=== PATIENT | female | born 1980 | race Two or more races ===

== ENCOUNTER 2020-03-05 00:14 | Emergency (ER) | payer MEDICAID, OTHER ==
[~2020-03-05] VITALS: Ht 157.5 cm; Wt 82.5 kg
[2020-03-05] MEDS ORDERED: SODIUM CHLORIDE FLUSH 10ML SYR IVF ONE (00:30)
[2020-03-05] MEDS ORDERED: MORPHINE SULFATE 4 MG/ML, 1ML IVPush PRN (00:30)
[2020-03-05] MEDS ORDERED: ONDANSETRON 2MG/ML, 2ML IVPush ONE (00:30)
--- NOTE | 2020-03-05 00:36 | NUR ---
Patient presents to ER c/o epigastric pain which started around 0000. Patient was nauseous earlier but denies vomiting. Denies diarrhea or urinary symptoms. Patient is in obvious pain. Respirations even and unlabored.
[2020-03-05] MEDS ORDERED: ONDANSETRON 2MG/ML, 2ML ONE (00:38)
[2020-03-05] MEDS ORDERED: MORPHINE SULFATE 4 MG/ML, 1ML ONE (00:38)
[2020-03-05 00:49] LABS: BASOPHILS # (AUTO) 0.05 x10^3/uL (0-0.1); BASOPHILS % (AUTO) 1 % (0-1); EOSINOPHILS # (AUTO) 0.15 x10^3/uL (0-0.4); EOSINOPHILS % (AUTO) 2 % (1-7); LYMPHOCYTES # (AUTO) 2.99 x10^3/uL (1-3.4); LYMPHOCYTES % (AUTO) 47 % (22-44); MD NO; MEAN CORPUSCULAR HEMOGLOBIN 28.7 pg (27.0-34.8); MEAN CORPUSCULAR HGB CONC 32.8 g/dL (32.4-35.8); MEAN PLATELET VOLUME 7.9 fL (7.4-10.4); MONOCYTES # (AUTO) 0.69 x10^3/uL (0.2-0.8); MONOCYTES % (AUTO) 11 % (2-9); NEUTROPHILS # (AUTO) 2.54 x10^3/uL (1.8-6.8); NEUTROPHILS % (AUTO) 40 % (42-75); PLATELET COUNT 330 x10^3/uL (130-400); RED BLOOD COUNT 4.95 x10^6/uL (3.82-5.3)
[2020-03-05 01:00] LABS: ALANINE AMINOTRANSFERASE 58 U/L (12-78); ALBUMIN 3.4 g/dL (3.4-5.0); ANION GAP 7 mmol/L (5-15); CALCIUM 9.2 mg/dL (8.5-10.1); CHLORIDE 110 mmol/L (98-107); CREATININE 0.81 mg/dL (0.55-1.02)
[2020-03-05 01:07] LABS: ALKALINE PHOSPHATASE 100 U/L (45-117); BILIRUBIN,TOTAL 0.5 mg/dL (0.2-1.0); TOTAL PROTEIN 8.1 g/dL (6.4-8.2)
[2020-03-05 02:09] VITALS: BP 125/69
== END 2020-03-05 02:18 ==
LOC: EDBD → ED 02:17
DX: K80.50 Calculus of bile duct without cholangitis or cholecystitis without obstruction (principal); R10.30 Lower abdominal pain, unspecified; R11.0 Nausea
CPT/HCPCS: 36415; 76700; 80053; 83690; 84703; 85025; 96374; 96375; 99284; J2270; J2405

== ENCOUNTER 2020-03-07 07:45 | Inpatient (IN) | payer SELFPAY ==
[~2020-03-07] VITALS: Ht 157.5 cm; Wt 85.6 kg
[2020-03-07] MEDS ORDERED: ONDANSETRON 2MG/ML, 2ML ONE (08:16)
[2020-03-07] MEDS ORDERED: HYDROmorphone 1 MG/ML, 1ML INJ ONE (08:16)
[2020-03-07] MEDS ORDERED: SODIUM CHLORIDE 0.9% 1,000ML IVBOLUS ONE (08:30)
[2020-03-07] MEDS ORDERED: ONDANSETRON 2MG/ML, 2ML IVPush ONE (08:30)
[2020-03-07] MEDS ORDERED: HYDROmorphone 2 MG/ML, 1ML IVPush PRN (08:30)
[2020-03-07 08:41] LABS: BASOPHILS # (AUTO) 0.17 x10^3/uL (0-0.1); BASOPHILS % (AUTO) 3 % (0-1); EOSINOPHILS # (AUTO) 0.12 x10^3/uL (0-0.4); EOSINOPHILS % (AUTO) 2 % (1-7); LYMPHOCYTES % (AUTO) 38 % (22-44); MD NO; MEAN CORPUSCULAR HEMOGLOBIN 28.5 pg (27.0-34.8); MEAN CORPUSCULAR HGB CONC 32.4 g/dL (32.4-35.8); MEAN PLATELET VOLUME 8.1 fL (7.4-10.4); MONOCYTES % (AUTO) 9 % (2-9); NEUTROPHILS # (AUTO) 2.85 x10^3/uL (1.8-6.8); NEUTROPHILS % (AUTO) 49 % (42-75); PLATELET COUNT 350 x10^3/uL (130-400); RED BLOOD COUNT 4.63 x10^6/uL (3.82-5.3); RED CELL DISTRIBUTION WIDTH 13.2 % (9.6-15.2)
--- NOTE | 2020-03-07 08:41 | NUR ---
MEDICATED FOR PAIN. IV ESTABLISHED.
[2020-03-07 08:47] LABS: ALANINE AMINOTRANSFERASE 194 U/L (12-78); ALBUMIN 2.9 g/dL (3.4-5.0); ANION GAP 6 mmol/L (5-15); CALCIUM 8.4 mg/dL (8.5-10.1); CHLORIDE 111 mmol/L (98-107); CREATININE 0.86 mg/dL (0.55-1.02)
[2020-03-07 08:49] LABS: ALKALINE PHOSPHATASE 128 U/L (45-117); BILIRUBIN,TOTAL 0.7 mg/dL (0.2-1.0); TOTAL PROTEIN 7.3 g/dL (6.4-8.2)
--- NOTE | 2020-03-07 10:30 | NUR ---
PT NAUSEAS, PLAN FOR ADMIT FOR SURGERY
[2020-03-07] MEDS ORDERED: METOCLOPRAMIDE 5 MG/ML, 2ML ONE (10:31)
--- NOTE | 2020-03-07 10:38 | NUR ---
NPO SINCE YESTERDAY AFTERNOON
[2020-03-07] MEDS ORDERED: CEFOTETAN PMX 1GM/50ML 50 ML IV ONE (11:00)
[2020-03-07] MEDS ORDERED: METOCLOPRAMIDE 5 MG/ML, 2ML IVPush ONE (11:00)
[2020-03-07] MEDS ORDERED: CEFOTETAN PMX 1GM/50ML 50 ML ONE (11:06)
[2020-03-07] MEDS: SODIUM CHLORIDE 0.9% 1,000 ML IV SCH (11:31)
--- NOTE | 2020-03-07 11:40 | NUR ---
[facility]REE TRIAGED AND DID AN EKG ON PT IN ROOM.
[2020-03-07] MEDS ORDERED: METRONIDAZOLE PMX 500MG/100ML 100 ML ONE (11:53)
[2020-03-07] MEDS ORDERED: CEFTRIAXONE PMX 1GM/50ML 50 ML ONE (11:53)
[2020-03-07] MEDS ORDERED: METRONIDAZOLE PMX 500MG/100ML 100 ML IV ONE (12:00)
--- NOTE | 2020-03-07 13:07 | NUR ---
REPORT TO DI
--- NOTE | 2020-03-07 13:08 | NUR ---
AMBULATED TO [facility], ABX INFUSING
[2020-03-07] MEDS: CEFTRIAXONE PMX 1GM/50ML 50 ML IV SCH (13:12)
--- NOTE | 2020-03-07 13:26 | NUR ---
REPORT FROM MAYRA RAMOS. PT RESTING IN GURNEY W/ EYES CLOSED. EVEN/REGULAR RESPIRATIONS NOTED. VSS. APPROPRIATE ISO PRECAUTIONS IN PLACE. IVF/ABX INFUSING. NO S/S OF ABX RXN NOTED.
--- NOTE | 2020-03-07 14:40 | NUR ---
CONTINUED HOLD IN ED. AWAITING OR VS ADMIT. HOSPITAL BED REQUESTED FOR PATIENT.
[2020-03-07 19:06] LABS: MICROSCOPIC NOT IND
[2020-03-07 19:48] VITALS: BP 124/76
[2020-03-08 01:17] VITALS: BP 126/80
[2020-03-08] MEDS: SODIUM CHLORIDE 0.9% 1,000 ML IV SCH ×2 (01:44→14:46)
[2020-03-08 05:09] LABS: BASOPHILS # (AUTO) 0.03 x10^3/uL (0-0.1); BASOPHILS % (AUTO) 1 % (0-1); EOSINOPHILS # (AUTO) 0.11 x10^3/uL (0-0.4); EOSINOPHILS % (AUTO) 2 % (1-7); LYMPHOCYTES # (AUTO) 2.58 x10^3/uL (1-3.4); LYMPHOCYTES % (AUTO) 37 % (22-44); MD NO; MEAN CORPUSCULAR HEMOGLOBIN 28.8 pg (27.0-34.8); MEAN CORPUSCULAR HGB CONC 32.9 g/dL (32.4-35.8); MEAN PLATELET VOLUME 8.2 fL (7.4-10.4); MONOCYTES # (AUTO) 0.64 x10^3/uL (0.2-0.8); MONOCYTES % (AUTO) 9 % (2-9); NEUTROPHILS # (AUTO) 3.52 x10^3/uL (1.8-6.8); NEUTROPHILS % (AUTO) 51 % (42-75); PLATELET COUNT 362 x10^3/uL (130-400); RED CELL DISTRIBUTION WIDTH 13.2 % (9.6-15.2)
[2020-03-08 05:15] LABS: CHLORIDE 113 mmol/L (98-107)
[2020-03-08 05:22] LABS: ALANINE AMINOTRANSFERASE 162 U/L (12-78); ALBUMIN 2.8 g/dL (3.4-5.0); ALKALINE PHOSPHATASE 112 U/L (45-117); ANION GAP 8 mmol/L (5-15); BILIRUBIN,TOTAL 0.4 mg/dL (0.2-1.0); CALCIUM 8.5 mg/dL (8.5-10.1); CREATININE 0.69 mg/dL (0.55-1.02); TOTAL PROTEIN 6.8 g/dL (6.4-8.2)
[2020-03-08 06:57] VITALS: BP 102/66
[2020-03-08] MEDS ORDERED: OXYcodone/APAP 5/325MG TABLET PO PRN (09:00)
[2020-03-08] MEDS ORDERED: POTASSIUM CHLORIDE 40 MEQ in SODIUM CHLORIDE 0.9% 500 ML IV ONE (09:00)
[2020-03-08] MEDS ORDERED: morphine SULFATE/PF 0.5 MG/ML, 10ML IV PRN (09:00)
[2020-03-08] MEDS: METRONIDAZOLE PMX 500MG/100ML 100 ML IV SCH ×3 (09:17→20:42)
[2020-03-08] MEDS ORDERED: SINCALIDE (KINEVAC) 5 MCG ONE (11:29)
[2020-03-08] MEDS: CEFTRIAXONE PMX 1GM/50ML 50 ML IV SCH (12:40)
[2020-03-08 13:08] VITALS: BP 138/87
[2020-03-08] MEDS ORDERED: DOCUSATE 100 MG CAPSULE PO PRN (15:30)
[2020-03-08] MEDS: HEPARIN 5,000 UNITS/ML, 1ML SQ SCH ×2 (15:30→23:14)
[2020-03-08] MEDS ORDERED: POLYETHYLENE GLYCOL 17 GM PACKET NG PRN (15:30)
[2020-03-08] MEDS ORDERED: SENNA/DOCUSATE TABLET PO PRN (15:30)
[2020-03-08] MEDS ORDERED: ONDANSETRON 2MG/ML, 2ML IVPush PRN (15:30)
[2020-03-08 20:00] VITALS: BP 120/75
[2020-03-09 00:52] VITALS: BP 113/74
[2020-03-09] MEDS: METRONIDAZOLE PMX 500MG/100ML 100 ML IV SCH (02:51)
[2020-03-09] MEDS: SODIUM CHLORIDE 0.9% 1,000 ML IV SCH (02:51)
[2020-03-09 05:13] LABS: CHLORIDE 109 mmol/L (98-107)
[2020-03-09 05:21] LABS: ANION GAP 4 mmol/L (5-15); CALCIUM 8.5 mg/dL (8.5-10.1); CREATININE 0.68 mg/dL (0.55-1.02)
[2020-03-09 05:22] LABS: ALANINE AMINOTRANSFERASE 166 U/L (12-78); ALBUMIN 2.8 g/dL (3.4-5.0); ALKALINE PHOSPHATASE 160 U/L (45-117); BILIRUBIN,TOTAL 0.6 mg/dL (0.2-1.0); TOTAL PROTEIN 6.9 g/dL (6.4-8.2)
[2020-03-09 07:16] VITALS: BP 123/78
[2020-03-09] MEDS: HEPARIN 5,000 UNITS/ML, 1ML SQ SCH (09:51)
[2020-03-09 12:10] VITALS: BP 122/80
[2020-03-09] MEDS ORDERED: ONDA4TAB7 PO (12:20)
== END 2020-03-09 17:55 | disposition home or self-care (01) | DRG 444 ==
LOC: ED 08:17 → EDIP 11:26 → UNDOADMOB 11:31 → 4EST 16:25 → OBSVTOIN 03-08 15:57 → EDBD 03-08 15:57
PROVIDERS: ADMIT Internal Medicine; ATTEND Internal Medicine
DX: K82.8 Other specified diseases of gallbladder (principal); U07.1 COVID-19; E66.9 Obesity, unspecified; R74.0 Nonspecific elevation of levels of transaminase and lactic acid dehydrogenase [LDH]; R94.5 Abnormal results of liver function studies; K76.0 Fatty (change of) liver, not elsewhere classified; Z68.34 Body mass index [BMI] 34.0-34.9, adult; K80.50 Calculus of bile duct without cholangitis or cholecystitis without obstruction
CPT/HCPCS: 36415; 71045; 76700; 78227; 80053; 81003; 83690; 85025; 87040; 87635; 93005; 96361; 96365; 96375; 99285; G0378; J0696; J1170; J1644; J2405; J3480; A9537; C9898; J2765; J2805; J3490; J7030; J7040